=== PATIENT | female | born 1995 | race Caucasian/White ===

== ENCOUNTER 2021-02-20 13:34 | Emergency (ER) | payer MEDICAID ==
[~2021-02-20] VITALS: Ht 172.7 cm; Wt 68.0 kg
--- NOTE | 2021-02-20 14:03 | NUR ---
URINE SPECIMEN COLLECTED AND SENT TO LAB.
--- NOTE | 2021-02-20 14:10 | NUR ---
BIBSELF C/O PAIN WHEN URINATING 01/24 STARTED THIS MORNING. NO BLADDER DISTENSION NOTED. WILL CONTINUE TO MONITOR THE PATIENT.
[2021-02-20 14:43] LABS: BILIRUBIN,URINE Negative (NEGATIVE); COLOR,URINE YELLOW (YELLOW); LEUKOCYTE ESTERASE ,URINE Moderate (NEGATIVE); NITRITE, URINE Negative (NEGATIVE); PROTEIN,URINE Negative (NEGATIVE); UGLUCOSE Negative (NEGATIVE); UROBILINOGEN,URINE 0.2 EU/dL (0.2)
[2021-02-20 14:50] LABS: BACTERIA,URINE 2+ /HPF (None Seen); SQUAMOUS EPITHELIAL CELL,UR Many /HPF (None Seen); WBC,URINE 21-50 /HPF (0-3)
[2021-02-20] MEDS ORDERED: CEPH500C2 PO (14:51)
[2021-02-20] MEDS ORDERED: CEPHALEXIN MONOHYDRATE 500 MG CAPSULE PO ONE ×2 (14:56→15:00)
--- NOTE | 2021-02-20 15:53 | NUR ---
Patient discharged to home in stable condition. RX Written and verbal after care instructions given. Patient verbalizes understanding of instruction. PT ambulatory with a steady gait
[2021-02-20 15:54] VITALS: BP 110/66
== END 2021-02-20 15:35 | disposition home or self-care (01) ==
LOC: ER 13:44
DX: N30.00 Acute cystitis without hematuria (principal)
CPT/HCPCS: 81001; 84703-TC; 87086-TC